=== PATIENT | male | born 1985 | race Caucasian/White ===

== ENCOUNTER 2018-07-12 19:16 | Emergency (ER) | payer OTHER ==
[~2018-07-12] VITALS: Wt 58.3 kg
[2018-07-12] MEDS ORDERED: CIPR500T4 PO (21:49)
[2018-07-12] MEDS ORDERED: DICY10CA40 PO (21:49)
--- NOTE | 2018-07-12 21:54 | ERD ---
ER Documentation Chief Complaint Chief Complaint ABD PAIN WITH DIARRHEA [id number] HPI 33-year-old male presents with generalized abdominal pain with nonbloody diarrhea that he has had for about 1 week since returning from a trip to [facility] with his girlfriend who is also here with the patient. No vomiting. No fever. ROS All systems reviewed and are negative except as per history of present illness. Medications Home Meds Active Scripts Ciprofloxacin Hcl* (Ciprofloxacin Hcl*) 500 Mg Tablet, 500 MG PO BID for 7 Days, TAB Prov:ERA BUNN PA-C 07/12/18 Dicyclomine HCl (Dicyclomine HCl) 10 Mg Capsule, 10 MG PO TID PRN for ABDOMINAL CRAMPING, #20 CAP Prov:ERA BUNN PA-C 07/12/18 PMhx/Soc Medical and Surgical Hx: pt denies Medical Hx, pt denies Surgical Hx Hx Alcohol Use: Yes Hx Tobacco Use: No Smoking Status: Never smoker FmHx Family History: No diabetes Physical Exam Vitals Vital Signs Date Temp Pulse Resp B/P (MAP) Pulse Ox O2 O2 Flow FiO2 Time Delivery Rate 07/12/18 97.4 64 19 120/77 99 19:30 (91) Physical Exam INITIAL VITAL SIGNS: Reviewed by me GENERAL: Awake, alert and oriented x 4, well appearing, nontoxic, speaking in full sentences. No acute distress HEAD: Atraumatic NECK: Supple. No masses. Full range of motion. No meningismus. No midline tenderness. EYES: EOMI. PERRL. RESPIRATORY: Clear to auscultation bilaterally. Symmetric chest wall rise. No wheezing or rales. No accessory muscle use. CV: Regular rate and rhythm. No murmurs, rubs, or gallops. ABDOMEN: Soft, non-distended. Nontender. Negative [place]. Negative [place] point tenderness. No CVA tenderness bilaterally. No guarding. No rebound. Procedures/MDM Patient has abdominal pain with diarrhea for about a week since returning from [facility]. He is well-appearing afebrile with a normal physical exam. Is given prescription for Bentyl as well as Cipro in case this is a traveler's diarrhea. Patient counseled regarding my diagnostic impression and care plan. Prior to discharge all questions answered. Pt agrees with treatment plan and understands strict return precautions. Pt is instructed to follow up with primary care provider within 24-48 hours. Precautionary instructions provided including instructions to return to the ER if not improving or for any worsening or changing symptoms or concerns. Departure Diagnosis: Primary Impression: Abdominal pain Condition: Stable Patient Instructions: Abdominal Pain Additional Instructions: Call your primary care doctor TOMORROW for an appointment during the next 1-2 days.See the doctor sooner or return here if your condition worsens before your appointment time. ERA BUNN PA-C Jul 12, 2018 21:54
[2018-07-12 22:17] VITALS: BP 110/76; PULSE 51; RESP 18
== END 2018-07-12 22:18 | disposition home or self-care (01) ==
LOC: FTE 19:16
DX: R10.9 Unspecified abdominal pain (principal)
CPT/HCPCS: 99283